=== PATIENT | female | born 1990 | race Caucasian/White ===

== ENCOUNTER 2017-03-30 14:26 | Emergency (ER) | payer OTHER ==
[~2017-03-30] VITALS: Ht 170.1 cm; Wt 131.5 kg
[~2017-03-30 14:26] MED LIST: ADVIL200 MG PO; AUGMENTIN 875875 MG PO; CIPROFLOXACIN500 MG PO; CYCLOBENZAPRINE10 MG PO; CYCLOBENZAPRINE5 M3 PO; MOTRIN800 MG PO; Motrin,Rufen800 MG PO; NAPROSYN500 MG PO; NKHM; PROTONIX40 MG PO; ZANTAC150 MG PO; ZOFRAN ODT4 MG SL
[2017-03-30] MEDS ORDERED: IBUPROFEN600 MG PO (17:04)
== END 2017-03-30 17:14 | disposition home or self-care (01) ==
LOC: ED 14:26
DX: G43.909 Migraine, unspecified, not intractable, without status migrainosus (principal); M25.552 Pain in left hip; M25.551 Pain in right hip; F17.200 Nicotine dependence, unspecified, uncomplicated

== ENCOUNTER 2017-10-20 14:57 | Emergency (ER) | payer OTHER ==
[~2017-10-20] VITALS: Ht 172.7 cm; Wt 127.0 kg
[~2017-10-20 14:57] MED LIST changes: +IBUPROFEN600 MG PO
[2017-10-20] MEDS ORDERED: Motrin,Rufen800 MG PO (16:59)
[2017-10-20] MEDS ORDERED: CYCLOBENZAPRINE5 M3 PO (16:59)
== END 2017-10-20 17:10 | disposition home or self-care (01) ==
LOC: ED 14:57
DX: S39.012A Strain of muscle, fascia and tendon of lower back, initial encounter (principal); M54.6 Pain in thoracic spine; W19.XXXA Unspecified fall, initial encounter; Y93.89 Activity, other specified; Y92.89 Other specified places as the place of occurrence of the external cause; Y99.9 Unspecified external cause status

== ENCOUNTER 2017-12-03 22:01 | Emergency (ER) | payer OTHER ==
[~2017-12-03] VITALS: Ht 170.1 cm; Wt 131.5 kg
[2017-12-03] MEDS ORDERED: Motrin,Rufen800 MG PO (23:18)
== END 2017-12-03 23:25 | disposition home or self-care (01) ==
LOC: ED 22:01
DX: S93.401A Sprain of unspecified ligament of right ankle, initial encounter (principal); X50.1XXA Overexertion from prolonged static or awkward postures, initial encounter; Y93.89 Activity, other specified; Y92.89 Other specified places as the place of occurrence of the external cause; Y99.9 Unspecified external cause status

== ENCOUNTER 2019-08-05 16:12 | Emergency (ER) | payer BC ==
[~2019-08-05] VITALS: Wt 90.7 kg
[2019-08-05] MEDS ORDERED: CYCLOBENZAPRINE5 M3 PO (18:52)
[2019-08-05] MEDS ORDERED: Motrin,Rufen800 MG PO (18:52)
== END 2019-08-05 19:13 | disposition home or self-care (01) ==
LOC: ED 16:12
DX: M25.512 Pain in left shoulder (principal); F17.200 Nicotine dependence, unspecified, uncomplicated; X58.XXXA Exposure to other specified factors, initial encounter; Y93.89 Activity, other specified; Y92.89 Other specified places as the place of occurrence of the external cause; Y99.8 Other external cause status

== ENCOUNTER → 2021-05-14 | Outpatient (CLI) | payer BC | END | disposition home or self-care (01) | LOC: COVID19 15:35 | PROVIDERS: ATTEND Student in an Organized Health Care Education/Training Program | DX: Z11.52 Encounter for screening for COVID-19 (principal) ==

== ENCOUNTER → 2021-05-26 | Outpatient (CLI) | payer BC | END | disposition home or self-care (01) | LOC: COVID19 16:04 | PROVIDERS: ATTEND Hospitalist | DX: Z11.52 Encounter for screening for COVID-19 (principal) ==

== ENCOUNTER 2022-01-08 02:39 | Emergency (ER) | payer BC ==
[2022-01-08 03:27] LABS: BASO % 0.4 % (0.0-1.0); EOS % 0.4 % (1.0-4.0); HEMATOCRIT 38.4 % (37.0-47.0); LYMPH # 0.7 10*3/uL (1.3-4.4); LYMPH % 8.9 % (27.0-41.0); MEAN CELL VOLUME 86.5 fl (81.0-99.0); MEAN CORPUSCULAR HGB 30.4 pg (27.0-31.0); MEAN CORPUSCULAR HGB CONC 35.2 g/dl (33.0-37.0); MEAN PLATELET VOLUME 9.5 fl (9.6-12.3); MONO # 0.4 10*3/uL (0.1-1.0); MONO % 5.2 % (3.0-9.0); NEUT # 6.3 10*3/uL (2.3-7.9); NEUT % 83.9 % (47.0-73.0); PLATELET COUNT AUTOMATED 199 10*3/uL (130-400); RED BLOOD COUNT 4.44 10*6/uL (4.10-5.10); RED CELL DISTRI WIDTH 12.6 % (0-14.5); WHITE BLOOD COUNT 7.6 10*3/uL (4.8-10.8)
[2022-01-08 03:32] LABS: BILIRUBIN 1+ (Negative); BLOOD 3+ (Negative); CLARITY Cloudy (Clear); COLOR Dark Yellow (Yellow); GLUCOSE Negative (Negative); KETONE 1+ (Negative); LEUKO ESTERASE 2+ (Negative); NITRITE Negative (Negative); PH 5.5 (4.5-8.0); SPECIFIC GRAVITY >= 1.030 (1.001-1.030)
[2022-01-08 03:40] LABS: EPITHELIAL CELLS TNTC; RBC 41-50 rbc/hpf (0-2); WBC 31-40 wbc/hpf (0-5)
[2022-01-08 03:41] LABS: BACTERIA 2+
[2022-01-08 03:43] LABS: ALKALINE PHOSPHATASE 90 U/L (45-117); BUN 8 mg/dl (7-24); CHLORIDE 106 mmol/L (98-107); CREATININE 0.72 mg/dL (0.55-1.02); LIPASE 208 U/L (73-393); POTASSIUM 3.5 mmol/L (3.5-5.1); SGOT/AST 73 IU/L (3-35); SGPT/ALT 95 U/L (12-78); SODIUM 134 mmol/L (136-145); TOTAL PROTEIN 6.8 gm/dL (6.4-8.2)
== END 2022-01-08 09:46 | disposition home or self-care (01) ==
LOC: ED 02:39
PROVIDERS: Emergency Medicine
DX: R10.31 Right lower quadrant pain (principal); F17.200 Nicotine dependence, unspecified, uncomplicated; G43.909 Migraine, unspecified, not intractable, without status migrainosus

== ENCOUNTER 2022-01-10 10:16 | Inpatient (IN) | payer BC ==
[~2022-01-10] VITALS: Ht 170.1 cm; Wt 162.6 kg
[2022-01-10 10:20] VITALS: BP 132/74
[2022-01-10 10:50] LABS: BASO # 0.1 10*3/uL (0.0-0.1); BASO % 0.6 % (0.0-1.0); EOS # 0.2 10*3/uL (0.0-0.4); EOS % 1.9 % (1.0-4.0); HEMATOCRIT 37.3 % (37.0-47.0); LYMPH # 1.7 10*3/uL (1.3-4.4); LYMPH % 16.6 % (27.0-41.0); MEAN CELL VOLUME 86.3 fl (81.0-99.0); MEAN CORPUSCULAR HGB 30.1 pg (27.0-31.0); MEAN CORPUSCULAR HGB CONC 34.9 g/dl (33.0-37.0); MEAN PLATELET VOLUME 10.3 fl (9.6-12.3); MONO # 0.8 10*3/uL (0.1-1.0); MONO % 8.1 % (3.0-9.0); NEUT # 7.2 10*3/uL (2.3-7.9); PLATELET COUNT AUTOMATED 236 10*3/uL (130-400); RED BLOOD COUNT 4.32 10*6/uL (4.10-5.10); RED CELL DISTRI WIDTH 12.8 % (0-14.5)
[2022-01-10 11:01] LABS: BILIRUBIN 1+ (Negative); BLOOD 3+ (Negative); CLARITY Cloudy (Clear); COLOR Dark Yellow (Yellow); GLUCOSE Negative (Negative); KETONE Trace (Negative); NITRITE Negative (Negative); PH 5.5 (4.5-8.0); SPECIFIC GRAVITY 1.025 (1.001-1.030)
[2022-01-10 11:02] LABS: LEUKO ESTERASE 2+ (Negative)
[2022-01-10 11:05] LABS: ALKALINE PHOSPHATASE 103 U/L (45-117); BUN 9 mg/dl (7-24); CHLORIDE 108 mmol/L (98-107); CREATININE 0.54 mg/dL (0.55-1.02); LIPASE 138 U/L (73-393); POTASSIUM 3.3 mmol/L (3.5-5.1); SGOT/AST 60 IU/L (3-35); SGPT/ALT 83 U/L (12-78); SODIUM 141 mmol/L (136-145); TOTAL PROTEIN 6.9 gm/dL (6.4-8.2)
[2022-01-10 11:14] LABS: BACTERIA 2+; RBC 21-30 rbc/hpf (0-2)
[2022-01-10 13:50] VITALS: BP 139/82
[2022-01-10] MEDS ORDERED: CELEXA20 MG PO (14:50)
[2022-01-10] MEDS ORDERED: STRATTERA40 M1 PO (14:51)
[2022-01-10 16:00] VITALS: BP 139/82
[2022-01-10 20:00] VITALS: BP 138/58
[2022-01-10 23:00] VITALS: BP 145/91
[2022-01-11 06:25] LABS: ALKALINE PHOSPHATASE 102 U/L (45-117); BUN 9 mg/dl (7-24); CHLORIDE 108 mmol/L (98-107); CHOLESTEROL 125 mg/dL (<200); FREE T4 1.12 ng/dl (0.76-1.46); POTASSIUM 3.4 mmol/L (3.5-5.1); SGOT/AST 46 IU/L (3-35); SGPT/ALT 70 U/L (12-78); SODIUM 139 mmol/L (136-145); TOTAL PROTEIN 6.4 gm/dL (6.4-8.2); TRIGLYCERIDES 217 mg/dl (<150)
[2022-01-11 06:30] LABS: LDL CHOLESTEROL 66 mg/dL (9-159)
[2022-01-11 06:36] LABS: HEMATOCRIT 34.5 % (37.0-47.0); MEAN CELL VOLUME 88.9 fl (81.0-99.0); MEAN CORPUSCULAR HGB 30.2 pg (27.0-31.0); MEAN CORPUSCULAR HGB CONC 33.9 g/dl (33.0-37.0); MEAN PLATELET VOLUME 10.1 fl (9.6-12.3); PLATELET COUNT AUTOMATED 257 10*3/uL (130-400); RED BLOOD COUNT 3.88 10*6/uL (4.10-5.10); RED CELL DISTRI WIDTH 13.1 % (0-14.5)
[2022-01-11 06:56] LABS: MANUAL DIFF REFLEX YES
[2022-01-11 07:42] LABS: ATYPICAL LYMPHS 1 % (0-0); BASOPHILS 1 % (0-1); PLATELET SUFFICIENCY NORMAL (NORMAL); TOTAL CELLS COUNTED 100 #CELLS
[2022-01-11 08:00] VITALS: BP 141/49
[2022-01-11 08:09] LABS: VITAMIN D, 25-HYDROXY 19.2 ng/mL (30-100)
[2022-01-11 12:00] VITALS: BP 119/62
[2022-01-11 16:00] VITALS: BP 144/79
[2022-01-11 20:00] VITALS: BP 134/62
[2022-01-12] VITALS: BP 130/62
[2022-01-12 08:00] VITALS: BP 136/71
[2022-01-12 12:00] VITALS: BP 134/78
[2022-01-12] MEDS ORDERED: OMNICEF300 MG PO (13:36)
[2022-01-12] MEDS ORDERED: HYDROCODONE-AC1 EAC1 PO (13:36)
[2022-01-12] MEDS ORDERED: VITAMIN D350 MC2 PO (13:36)
[2022-01-12 16:00] VITALS: BP 115/59
[2022-01-12 20:00] VITALS: BP 120/73
[2022-01-13] VITALS: BP 111/68
[2022-01-13 08:00] VITALS: BP 122/50
== END 2022-01-13 10:37 | disposition home or self-care (01) | DRG 871 ==
LOC: ED 10:16 → EDHOLD 11:57 → 5E 11:57
PROVIDERS: Registered Nurse; Student in an Organized Health Care Education/Training Program; ADMIT Internal Medicine; ATTEND Internal Medicine
DX: A41.9 Sepsis, unspecified organism (principal); E43 Unspecified severe protein-calorie malnutrition; N12 Tubulo-interstitial nephritis, not specified as acute or chronic; Z68.43 Body mass index [BMI] 50.0-59.9, adult; E87.6 Hypokalemia; F90.9 Attention-deficit hyperactivity disorder, unspecified type; R82.2 Biliuria; E87.8 Other disorders of electrolyte and fluid balance, not elsewhere classified; F41.1 Generalized anxiety disorder; G43.909 Migraine, unspecified, not intractable, without status migrainosus; K76.0 Fatty (change of) liver, not elsewhere classified; R73.9 Hyperglycemia, unspecified; R74.01 Elevation of levels of liver transaminase levels; F17.210 Nicotine dependence, cigarettes, uncomplicated; Z83.3 Family history of diabetes mellitus; Z82.49 Family history of ischemic heart disease and other diseases of the circulatory system; Z78.9 Other specified health status